=== PATIENT | male | born 1985 | race American Indian/Alaskan Native ===

== ENCOUNTER 2017-06-08 16:41 | Emergency (ER) | payer SELFPAY ==
[2017-06-08 16:54] VITALS: BP 115/81
== END 2017-06-08 21:21 | disposition left against medical advice (07) ==
LOC: ED 16:41
DX: J11.1 Influenza due to unidentified influenza virus with other respiratory manifestations (principal); Z53.21 Procedure and treatment not carried out due to patient leaving prior to being seen by health care provider

== ENCOUNTER 2017-06-08 23:09 | Emergency (ER) | payer SELFPAY ==
[2017-06-08 23:35] VITALS: BP 92/74
[2017-06-08] MEDS ORDERED: TYLENOL PO ONE (23:50)
[2017-06-08] MEDS ORDERED: TYLENOL ONE (23:52)
== END 2017-06-09 10:40 | disposition left against medical advice (07) ==
LOC: ED 23:09
DX: R51 Headache (principal); Z53.21 Procedure and treatment not carried out due to patient leaving prior to being seen by health care provider

== ENCOUNTER 2017-07-26 10:22 | Emergency (ER) | payer OTHER ==
[2017-07-26 10:50] VITALS: BP 111/70
[2017-07-26 12:39] LABS: Bacteria,Urine 1+ /HPF (Negative); Bilirubin,Urine NEG (Negative); Blood,Urine NEG (Negative); Color,Urine Yellow (Yellow); Mucus,Urine FEW /HPF; Protein,Urine <15 mg/dL mg/dL (Negative); Urobilinogen,Urine < 2.0 mg/dL (<2.0)
[2017-07-26] MEDS ORDERED: ROCEPHIN IM ONE (12:59)
[2017-07-26] MEDS ORDERED: XYLOCAINE 1% MPF 5 mL INFILTRATI ONE (12:59)
[2017-07-26] MEDS ORDERED: ZITHROMAX PO ONE (12:59)
--- NOTE | 2017-07-26 13:08 | Emergency Department Report ---
ED Back Pain/Injury HPI - General Chief Complaint: Back Pain/Injury Stated Complaint: BACK PAIN Time Seen by Provider: 07/26/17 12:43 Source: patient Limitations: No Limitations - History of Present Illness Initial Comments: Patient is a 32-year-old -[place] male who has had low back pain on the left side for approximately 3 days. Patient denies any trauma. Patient denies any heavy lifting at work he says he has a nonstrenuous job. Patient denies dysuria or hematuria. Patient does not have a history of chronic back pain. Patient denies any groin swelling groin pain penile discharge nausea vomiting. Patient states it does hurt worse when he moves. Patient does state that when he urinates although it doesn't burn at the penis he does feel some discomfort in his back as well. Severity scale (0 -10): 6 Quality: aching - Related Data Previous Rx's Medication Instructions Recorded Last Taken Type Ibuprofen [Motrin] 800 mg PO Q8HR PRN #20 tablet 07/26/17 Unknown Rx methOCARBAMOL [Robaxin TAB] 500 mg PO Q6H PRN #12 tablet 07/26/17 Unknown Rx traMADol [Ultram] 50 mg PO Q6HR PRN #12 tablet 07/26/17 Unknown Rx Allergies Allergy/AdvReac Type Severity Reaction Status Date / Time No Known Allergies Allergy Verified 06/08/17 16:49 ED Review of Systems ROS: Stated complaint: BACK PAIN Other details as noted in HPI Comment: All other systems reviewed and negative ED Back Pain Physical Exam - Exam General: Vital signs noted. No distress. Alert and acting appropriately. Patient's heart lung and abdomen exams are within normal limits. Back/Abdomen: Yes Perilumbar Tenderness, No Abdominal Tenderness, No Perithoracic Tenderness, No Sacroiliac Tenderness, No Flank Tenderness, No Straight Leg Raise Pain Neuro: Yes Normal Sensation, Yes Normal DTR's, Yes Normal Gait, No Motor Weakness ED Course Vital Signs 07/26/17 10:47 Temperature 98.7 F Pulse Rate 57 L Blood Pressure 111/70 O2 Sat by Pulse 96 Oximetry ED Medical Decision Making - Lab Data Lab Results 07/26/17 Range/Units 12:26 Urine Color Yellow (Yellow) Urine Turbidity Clear (Clear) Urine pH 7.0 (5.0-7.0) Ur Specific [place] 1.017 (1.003-1.030) Urine Protein <15 mg/dl (Negative) mg/dL Urine Glucose (UA) Neg (Negative) mg/dL Urine Ketones Neg (Negative) mg/dL Urine Blood Neg (Negative) Urine Nitrite Neg (Negative) Urine Bilirubin Neg (Negative) Urine Urobilinogen < 2.0 (<2.0) mg/dL Ur Leukocyte Esterase Sm (Negative) Urine WBC (Auto) 12.0 H (0.0-6.0) /HPF Urine RBC (Auto) 4.0 (0.0-6.0) /HPF U Epithel Cells (Auto) < 1.0 (0-13.0) /HPF Urine Bacteria (Auto) 1+ (Negative) /HPF Urine Mucus Few /HPF - Medical Decision Making The patient's back pain does sound musculoskeletal on history and physical however urinalysis was sent on a nurse protocol he does have a small amount of bacteria and white cells in the urine. Patient was asked about a risky sexual behavior states that he uses condoms and does not feel as though he is at risk for STD. Because of his age however patient will be started STD prophylaxis and a chlamydia DNA probe will be sent. The patient will be sent home with medications for muscular skeletal back pain as well. Critical care attestation.: If time is entered above; I have spent that time in minutes in the direct care of this critically ill patient, excluding procedure time. ED Disposition Clinical Impression: Back pain Qualifiers: Back pain location: low back pain Chronicity: acute Back pain laterality: right Sciatica presence: without sciatica Qualified Code(s): M54.5 - Low back pain UTI (urinary tract infection) Qualifiers: Urinary tract infection type: site unspecified Hematuria presence: without hematuria Qualified Code(s): N39.0 - Urinary tract infection, site not specified Disposition: DC-01 TO HOME OR SELFCARE Is pt being admited?: No Does the pt Need Aspirin: No Condition: Stable Instructions: Acute Low Back Pain (ED) Prescriptions: Ibuprofen [Motrin] 800 mg PO Q8HR PRN #20 tablet PRN Reason: Pain methOCARBAMOL [Robaxin TAB] 500 mg PO Q6H PRN #12 tablet PRN Reason: Pain traMADol [Ultram] 50 mg PO Q6HR PRN #12 tablet PRN Reason: Pain Referrals: PRIMARY CARE, [Primary Care Provider] - 3-5 Days
== END 2017-07-26 13:28 | disposition home or self-care (01) ==
LOC: ED 10:22
DX: M54.5 Low back pain (principal); N39.0 Urinary tract infection, site not specified
CPT/HCPCS: 81001; 96372; 99283; J0696